=== PATIENT | female | born 1965 | race Caucasian/White ===

== ENCOUNTER 2020-06-14 00:09 | Observation (INO) | payer OTHER ==
[2020-06-14 02:53] LABS: BASO % 0.6 % (0-2.0); EOS % 2.5 % (0-4.5); HEMATOCRIT 41.6 % (32.4-45.2); HEMOGLOBIN 13.8 GM/dL (10.7-15.3); MCH 29.1 pg (25.7-33.7); MCHC 33.1 g/dl (32.0-36.0); MEAN CELL VOLUME 87.9 fl (80-96); MEAN PLT VOLUME 8.5 fl (7.5-11.1); MONO % 6.9 % (3.8-10.2); PLATELET COUNT 480 K/MM3 (134-434); RBC 4.73 M/mm3 (3.60-5.2); RDW 16.4 % (11.6-15.6); WHITE BLOOD COUNT 9.5 K/mm3 (4.0-10.0)
[2020-06-14 02:56] LABS: EPI CELLS 7 /uL (0-25.1); HYALINE CASTS 0 /uL (0-3.1); PH,URINE 7.5 (5.0-8.0); URINE APPEARANCE CLEAR; URINE BACTERIA 2363 /uL (0-1359); URINE BILIRUBIN NEGATIVE (NEGATIVE); URINE COLOR YELLOW; URINE GLUCOSE (UA) NEGATIVE (NEGATIVE); URINE KETONE NEGATIVE (NEGATIVE); URINE LEUK ESTERASE TRACE (NEGATIVE); URINE NITRITE NEGATIVE (NEGATIVE); URINE PROTEIN NEGATIVE (NEGATIVE); URINE RBC 2 /uL (0-23.9); URINE UROBILINOGEN 0.2 mg/dL (0.2-1.0); URINE WBC 13 /uL (0-25.8)
[2020-06-14 03:06] LABS: INR 0.91 (0.83-1.09); PROTHROMBIN TIME (PATIENT) 11.2 SEC (9.7-13.0)
[2020-06-14 03:08] LABS: ACTIVATED PTT 28.3 SECONDS (25.2-36.5)
[2020-06-14 03:16] LABS: CHLORIDE 104 mmol/L (98-107); SODIUM 138 mmol/L (136-145)
[2020-06-14 03:18] LABS: ALBUMIN 3.7 g/dl (3.4-5.0); ANION GAP 3 MMOL/L (8-16); CALCIUM 8.8 mg/dL (8.5-10.1); CO2 31 mmol/L (21-32)
[2020-06-14 03:22] LABS: BILIRUBIN,DIRECT 0.1 mg/dL (0.0-0.2); CREATININE 0.7 mg/dL (0.55-1.3); SGOT/AST 15 U/L (15-37); SGPT/ALT 26 U/L (13-61)
[2020-06-14 03:24] LABS: ALK PHOS 81 U/L (45-117); BILIRUBIN,TOTAL 0.3 mg/dL (0.2-1); TOT PROT 6.7 g/dl (6.4-8.2)
[2020-06-14 03:25] LABS: LDH 93 U/L (84-246)
[2020-06-14 04:22] LABS: GLUCOSE,RANDOM 101 mg/dL (74-106)
[2020-06-14] MEDS ORDERED: METHOCARBAMOL 500 MG TABLET PO ONE (05:45)
[2020-06-14] MEDS ORDERED: LIDOCAINE 5% TOPICAL PATCH TP ONE (05:45)
[2020-06-14] MEDS ORDERED: MECLIZINE HCL 25 MG TABLET (FP) PO ONE (05:53)
[2020-06-14] MEDS ORDERED: LIDOCAINE 5% TOPICAL PATCH ONE (06:02)
[2020-06-14] MEDS ORDERED: MECLIZINE HCL 25 MG TABLET (FP) ONE ×2 (06:02→22:54)
[2020-06-14] MEDS ORDERED: METHOCARBAMOL 500 MG TABLET ONE (06:02)
[2020-06-14] MEDS ORDERED: METOCLOPRAMIDE HCL INJECTION 10 MG/2 ML VIAL IVPUSH ONE (08:33)
[2020-06-14] MEDS ORDERED: diazePAM 5 MG TABLET PO ONE (08:35)
[2020-06-14] MEDS ORDERED: diphenhydrAMINE HCL 25 MG CAPSULE (FP) PO ONE (08:35)
[2020-06-14] MEDS ORDERED: CEPHALEXIN MONOHYDRATE 500 MG CAPSULE (UD) PO ONE (08:37)
[2020-06-14] MEDS ORDERED: METOCLOPRAMIDE HCL INJECTION 10 MG/2 ML VIAL ONE (08:51)
[2020-06-14] MEDS ORDERED: CEPHALEXIN MONOHYDRATE 500 MG CAPSULE (UD) ONE ×2 (08:52→21:12)
[2020-06-14] MEDS ORDERED: diazePAM 5 MG TABLET ONE (08:52)
[2020-06-14] MEDS ORDERED: ASPIRIN 81 MG CHEWABLE TABLETS PO ONE (12:54)
[2020-06-14] MEDS ORDERED: ASPIRIN 81 MG CHEWABLE TABLETS ONE (14:00)
[2020-06-14] MEDS ORDERED: METOCLOPRAMIDE HCL INJECTION 10 MG/2 ML VIAL IVPUSH PRN (16:02)
[2020-06-14] MEDS ORDERED: ACETAMINOPHEN 325 MG TABLET (FP) PO PRN (16:03)
[2020-06-14] MEDS ORDERED: LIDOCAINE PATCH REMOVAL MC ONE (18:00)
[2020-06-14] MEDS: CEPHALEXIN MONOHYDRATE 500 MG CAPSULE (UD) PO SCH (21:34)
[2020-06-14] MEDS: MECLIZINE HCL 25 MG TABLET (FP) PO PRN (23:00)
[2020-06-15] MEDS ORDERED: CEPHALEXIN MONOHYDRATE 500 MG CAPSULE (UD) ONE (08:34)
[2020-06-15] MEDS ORDERED: ENOXAPARIN NA (PORCINE) 40 MG/0.4 ML DISP.SYRIN SQ ONE (08:34)
[2020-06-15] MEDS ORDERED: ASPIRIN 81 MG CHEWABLE TABLETS ONE (08:34)
[2020-06-15] MEDS: ENOXAPARIN NA (PORCINE) 40 MG/0.4 ML DISP.SYRIN SQ SCH (09:07)
[2020-06-15] MEDS: ASPIRIN 81 MG CHEWABLE TABLETS PO SCH (09:07)
[2020-06-15] MEDS: CEPHALEXIN MONOHYDRATE 500 MG CAPSULE (UD) PO SCH ×2 (09:07→21:41)
[2020-06-15 10:58] LABS: BASO % 0.8 % (0-2.0); EOS % 2.7 % (0-4.5); HEMATOCRIT 42.3 % (32.4-45.2); HEMOGLOBIN 14.4 GM/dL (10.7-15.3); LYMPH % 31.8 % (8-40); MCH 29.6 pg (25.7-33.7); MEAN PLT VOLUME 8.3 fl (7.5-11.1); MONO % 8.2 % (3.8-10.2); NEUT % 56.5 % (42.8-82.8); PLATELET COUNT 507 K/MM3 (134-434); RBC 4.87 M/mm3 (3.60-5.2); RDW 16.4 % (11.6-15.6); WHITE BLOOD COUNT 9.7 K/mm3 (4.0-10.0)
[2020-06-15 11:17] LABS: CALCIUM 8.8 mg/dL (8.5-10.1)
[2020-06-15 11:18] LABS: ALBUMIN 3.5 g/dl (3.4-5.0)
[2020-06-15 11:21] LABS: CREATININE 0.8 mg/dL (0.55-1.3)
[2020-06-15 11:23] LABS: TOT PROT 6.9 g/dl (6.4-8.2)
[2020-06-15 11:48] LABS: BILIRUBIN,TOTAL 0.4 mg/dL (0.2-1)
[2020-06-16 02:50] VITALS: BMI 36.5
[2020-06-16] MEDS: ENOXAPARIN NA (PORCINE) 40 MG/0.4 ML DISP.SYRIN SQ SCH (10:03)
[2020-06-16] MEDS: CEPHALEXIN MONOHYDRATE 500 MG CAPSULE (UD) PO SCH ×2 (10:03→21:11)
[2020-06-16] MEDS: ASPIRIN 81 MG CHEWABLE TABLETS PO SCH (10:03)
[2020-06-16] MEDS ORDERED: ACETAMINOPHEN 325 MG TABLET (FP) PO ONE (21:26)
[2020-06-16 22:14] LABS: EPI CELLS 35 /uL (0-25.1); HYALINE CASTS 1 /uL (0-3.1); URINE APPEARANCE CLEAR; URINE BACTERIA 978 /uL (0-1359); URINE BILIRUBIN NEGATIVE (NEGATIVE); URINE COLOR YELLOW; URINE GLUCOSE (UA) NEGATIVE (NEGATIVE); URINE KETONE TRACE (NEGATIVE); URINE LEUK ESTERASE 1+ (NEGATIVE); URINE NITRITE NEGATIVE (NEGATIVE); URINE PROTEIN NEGATIVE (NEGATIVE); URINE RBC 6 /uL (0-23.9); URINE WBC 57 /uL (0-25.8)
[2020-06-17] MEDS: CEPHALEXIN MONOHYDRATE 500 MG CAPSULE (UD) PO SCH (09:09)
[2020-06-17] MEDS: ENOXAPARIN NA (PORCINE) 40 MG/0.4 ML DISP.SYRIN SQ SCH (09:09)
[2020-06-17] MEDS: ASPIRIN 81 MG CHEWABLE TABLETS PO SCH (09:09)
[2020-06-17] MEDS: MECLIZINE HCL 25 MG TABLET (FP) PO PRN (10:52)
[2020-06-17 13:45] VITALS: BP 122/81; PULSE 82; TEMP 98.1
== END 2020-06-17 17:04 | disposition home or self-care (01) ==
LOC: JER 00:09 → INTOOBSV 10:48 → UNDOADMOB 10:48 → JERBED 10:48 → J6WEST-2 06-15 19:52 → JERBED 06-16 11:00 → J6WEST-2 06-16 11:00
PROVIDERS: ADMIT Internal Medicine; ATTEND Student in an Organized Health Care Education/Training Program
PROC: 3E023GC Introduction of Other Therapeutic Substance into Muscle, Percutaneous Approach (ICD-10-PCS; principal; 2020-06-16)
PROC: 3E033GC Introduction of Other Therapeutic Substance into Peripheral Vein, Percutaneous Approach (ICD-10-PCS; 2020-06-16)
DX: R42 Dizziness and giddiness (principal); G89.29 Other chronic pain; M54.2 Cervicalgia; R10.11 Right upper quadrant pain; M54.5 Low back pain; Z29.9 Encounter for prophylactic measures, unspecified; E66.8 Other obesity; Z68.36 Body mass index [BMI] 36.0-36.9, adult
CPT/HCPCS: 36415; 70450-TC; 71045-TC-FY; 74177-TC; 80053; 81003; 82248; 82550; 82607; 82728; 83605; 83615; 84484; 85025; 85610; 85730; 86140; 86780; 87040; 87086; 87491; 87591; 87804; 93005; 93010; 96372; 96374; 97116-GP; 97162-GP; 99285-25; C9803; G0378; Q9967; U0003; U0005

== ENCOUNTER 2021-10-15 14:34 | Emergency (ER) | payer OTHER ==
[2021-10-15 15:08] VITALS: BP 106/70; PULSE 72; RESP 16; TEMP 97.7; BMI 37.2
[2021-10-15] MEDS ORDERED: KETOROLAC TROMETHAMINE 30 MG/1 ML VIAL IM ONE (15:52)
[2021-10-15] MEDS ORDERED: KETOROLAC TROMETHAMINE 30 MG/1 ML VIAL ONE (15:55)
[2021-10-15] MEDS ORDERED: LIDOCAINE 5% TOPICAL PATCH TP ONE (15:57)
[2021-10-15] MEDS ORDERED: ACETAMINOPHEN 325 MG TABLET (FP) PO ONE (15:57)
[2021-10-15] MEDS ORDERED: ACETAMINOPHEN 325 MG TABLET (FP) ONE (16:00)
[2021-10-15] MEDS ORDERED: LIDOCAINE 5% TOPICAL PATCH ONE (16:01)
[2021-10-15] MEDS ORDERED: LIDOCAINE PATCH REMOVAL MC SCH (22:00)
== END 2021-10-15 17:52 | disposition home or self-care (01) ==
LOC: JER 14:34
PROC: 3E0233Z Introduction of Anti-inflammatory into Muscle, Percutaneous Approach (ICD-10-PCS; principal; 2021-10-15)
DX: S39.012A Strain of muscle, fascia and tendon of lower back, initial encounter (principal); X50.0XXA Overexertion from strenuous movement or load, initial encounter
CPT/HCPCS: 71046-TC-FY; 72100-TC-FY; 72170-TC-FY; 73502-TC-RT-FY; 99285-25

== ENCOUNTER 2022-06-29 16:31 | Emergency (ER) | payer OTHER ==
[2022-06-29 16:40] VITALS: BP 104/70; PULSE 83; RESP 18; TEMP 98.1; BMI 35.4
[2022-06-29] MEDS ORDERED: SODIUM CHLORIDE 0.9% 500 ML INFUS.BAG IV ONE (17:18)
[2022-06-29] MEDS ORDERED: ACETAMINOPHEN 1000 MG/100 ML BAG IVPB ONE (17:20)
[2022-06-29] MEDS ORDERED: ACETAMINOPHEN INJECTION 100 ML IVPB ONE (17:40)
[2022-06-29 18:39] LABS: BASO % 0.6 % (0-2.0); EOS % 1.9 % (0-4.5); HEMATOCRIT 37.4 % (32.4-45.2); HEMOGLOBIN 12.5 GM/dL (10.7-15.3); LYMPH % 30.3 % (8-40); MCHC 33.4 g/dl (32.0-36.0); MEAN PLT VOLUME 9.1 fl (7.5-11.1); MONO % 8.8 % (3.8-10.2); NEUT % 58.4 % (42.8-82.8); PLATELET COUNT 462 10^3/uL (134-434); RBC 4.15 M/mm3 (3.60-5.2); WHITE BLOOD COUNT 9.1 K/mm3 (4.0-10.0)
[2022-06-29 18:54] LABS: ALBUMIN 3.6 g/dl (3.4-5.0); CALCIUM 8.9 mg/dL (8.5-10.1)
[2022-06-29 18:55] LABS: BLOOD UREA NITROGEN 16.6 mg/dL (7-18)
[2022-06-29 18:58] LABS: CREATININE 0.9 mg/dL (0.55-1.3)
[2022-06-29 18:59] LABS: BILIRUBIN,TOTAL 0.1 mg/dL (0.2-1); TOT PROT 6.9 g/dl (6.4-8.2)
[2022-06-29 21:19] LABS: EPI CELLS 3 /uL (0-25.1); HYALINE CASTS 0 /uL (0-3.1); PH,URINE 5.5 (5.0-8.0); URINE APPEARANCE CLEAR; URINE BACTERIA 1 /uL (0-1359); URINE BILIRUBIN NEGATIVE (NEGATIVE); URINE COLOR YELLOW; URINE GLUCOSE (UA) NEGATIVE (NEGATIVE); URINE KETONE NEGATIVE (NEGATIVE); URINE LEUK ESTERASE NEGATIVE (NEGATIVE); URINE NITRITE NEGATIVE (NEGATIVE); URINE PROTEIN NEGATIVE (NEGATIVE); URINE RBC 75 /uL (0-23.9); URINE UROBILINOGEN 0.2 mg/dL (0.2-1.0); URINE WBC 1 /uL (0-25.8)
== END 2022-06-29 20:53 | disposition home or self-care (01) ==
LOC: JER 16:31
PROC: 3E033NZ Introduction of Analgesics, Hypnotics, Sedatives into Peripheral Vein, Percutaneous Approach (ICD-10-PCS; principal; 2022-06-29)
DX: R10.30 Lower abdominal pain, unspecified (principal); R42 Dizziness and giddiness; M54.50 Low back pain, unspecified; N93.9 Abnormal uterine and vaginal bleeding, unspecified
CPT/HCPCS: 36415; 76830-TC; 80053; 81003; 84484; 84703; 85025; 86850; 86900; 86901; 87086; 93005; 93010; 99285-25

== ENCOUNTER 2022-07-09 18:03 | Emergency (ER) | payer OTHER ==
[2022-07-09 18:08] VITALS: BP 126/80; PULSE 64; RESP 19; TEMP 98.6; BMI 36.5
[2022-07-09] MEDS ORDERED: LIDOCAINE 5% TOPICAL PATCH TP ONE (18:35)
[2022-07-09] MEDS ORDERED: LIDOCAINE 5% TOPICAL PATCH ONE (18:38)
== END 2022-07-09 21:41 | disposition home or self-care (01) ==
LOC: JERFT 18:03
DX: M25.552 Pain in left hip (principal); W06.XXXA Fall from bed, initial encounter
CPT/HCPCS: 72170-TC-FY; 99283-25

== ENCOUNTER 2023-01-24 15:54 | Emergency (ER) | payer OTHER ==
[2023-01-24 16:06] VITALS: BP 136/87; PULSE 83; RESP 18; TEMP 98.6; BMI 37.5
[2023-01-24] MEDS ORDERED: methylPREDNISolone NA SUCC 125 MG/2 ML VIAL IVPB ONE (17:02)
[2023-01-24] MEDS ORDERED: ACETAMINOPHEN 1000 MG/100 ML BAG IVPB ONE (17:02)
[2023-01-24] MEDS ORDERED: SODIUM CHLORIDE 0.9% 1000 ML INFUS.BAG IV ONE (17:03)
[2023-01-24 17:56] LABS: BASO % 0.6 % (0-2.0); EOS % 1.9 % (0-4.5); HEMATOCRIT 41.1 % (32.4-45.2); HEMOGLOBIN 13.5 GM/dL (10.7-15.3); LYMPH % 26.7 % (8-40); MCH 29.2 pg (25.7-33.7); MCHC 32.8 g/dl (32.0-36.0); MEAN CELL VOLUME 89.2 fl (80-96); MEAN PLT VOLUME 8.5 fl (7.5-11.1); MONO % 9.9 % (3.8-10.2); NEUT % 60.9 % (42.8-82.8); PLATELET COUNT 485 10^3/uL (134-434); RBC 4.61 M/mm3 (3.60-5.2)
[2023-01-24 18:21] LABS: POTASSIUM 4.3 mmol/L (3.5-5.1)
[2023-01-24 18:24] LABS: ALBUMIN 3.7 g/dl (3.4-5.0); BLOOD UREA NITROGEN 16.5 mg/dL (7-18); CALCIUM 8.7 mg/dL (8.5-10.1)
[2023-01-24 18:26] LABS: URIC ACID 3.9 mg/dL (2.6-7.2)
[2023-01-24] MEDS ORDERED: morphine CARPU-JECT 2 MG/1 ML DISP.SYRIN IVPUSH ONE (18:26)
[2023-01-24 18:27] LABS: CREATININE 0.8 mg/dL (0.55-1.3)
[2023-01-24 18:29] LABS: BILIRUBIN,TOTAL 0.3 mg/dL (0.2-1); TOT PROT 6.8 g/dl (6.4-8.2)
[2023-01-24 18:41] LABS: ERYTHROCYTE SEDIMENTATION RATE 8 mm/hr (0-30)
[2023-01-24] MEDS ORDERED: KETOROLAC TROMETHAMINE 15 MG/ML VIAL IVPUSH ONE (19:20)
[2023-01-24] MEDS ORDERED: KETOROLAC TROMETHAMINE 15 MG/ML VIAL ONE (19:20)
[2023-01-24] MEDS ORDERED: FAMOTIDINE 20 MG TABLET PO ONE (20:04)
[2023-01-24] MEDS ORDERED: FAMOTIDINE 20 MG TABLET ONE (20:07)
== END 2023-01-24 21:00 | disposition home or self-care (01) ==
LOC: JER 15:54
PROC: 3E033NZ Introduction of Analgesics, Hypnotics, Sedatives into Peripheral Vein, Percutaneous Approach (ICD-10-PCS; principal; 2023-01-24)
PROC: 3E0333Z Introduction of Anti-inflammatory into Peripheral Vein, Percutaneous Approach (ICD-10-PCS; 2023-01-24)
PROC: 3E033GC Introduction of Other Therapeutic Substance into Peripheral Vein, Percutaneous Approach (ICD-10-PCS; 2023-01-24)
PROC: 3E033GC Introduction of Other Therapeutic Substance into Peripheral Vein, Percutaneous Approach (ICD-10-PCS; 2023-01-24)
DX: M86.9 Osteomyelitis, unspecified (principal); M25.549 Pain in joints of unspecified hand; M25.579 Pain in unspecified ankle and joints of unspecified foot; M54.9 Dorsalgia, unspecified; M25.40 Effusion, unspecified joint
CPT/HCPCS: 36415; 80053; 84550; 85025; 85613; 85651; 85732; 86140; 86235; 99284-25